=== PATIENT | female | born 1970 | race Caucasian/White ===

== ENCOUNTER 2017-12-01 19:57 | Emergency (ER) | payer MEDICAID ==
[~2017-12-01] VITALS: Ht 162.6 cm; Wt 77.3 kg
[2017-12-01 20:44] VITALS: Ht 162.6 cm; Wt 77.3 kg
[2017-12-01 21:58] LABS: BASOPHILS 0.1 % (0-2); EOSINOPHILS 0.2 % (0-7); HEMATOCRIT 45.9 % (36.0-48.0); HEMOGLOBIN 15.8 g/dL (12-16); IMMATURE GRANULOCYTES 0.2 % (0-5); LYMPHOCYTES 14.7 % (15-50); MCHC 34.4 g/dL (31.0-37.0); MCV 90.2 fL (80.0-100.0); MONOCYTES 7.8 % (2-11); PLATELET COUNT 184 10x3/uL (130-400); RBC 5.09 10x6/uL (4.00-5.40); RDW 13.1 % (11.5-14.5); WBC 10.3 10x3/uL (4.8-10.8)
[2017-12-01 22:15] LABS: ALBUMIN 3.7 g/dL (3.4-5.0); ANION GAP 14.2 mmol/L (8-16); BILIRUBIN - TOTAL 0.22 mg/dL (0.2-1.3); CALCIUM 9.1 mg/dL (8.5-10.1); CARBON DIOXIDE 25.3 mmol/L (21.0-32.0); CREATININE - SERUM 0.9 mg/dL (0.6-1.3); POTASSIUM - SERUM 3.5 mmol/L (3.5-5.1); PROTEIN - SERUM 8.5 g/dL (6.4-8.2)
[2017-12-01 22:44] LABS: APPEARANCE HAZY (CLEAR); COLOR YELLOW (YELLOW); SPECIFIC GRAVITY 1.015 (1.005-1.020)
[2017-12-01 22:45] LABS: BILIRUBIN NEGATIVE (NEGATIVE); GLUCOSE NEGATIVE (NEGATIVE); KETONE NEGATIVE (NEGATIVE); NITRITE NEGATIVE (NEGATIVE); PROTEIN NEGATIVE (NEGATIVE); UROBILINOGEN NORMAL (NORMAL)
[2017-12-01 22:46] LABS: BACTERIA MODERATE /hpf (NONE SEEN); RED CELLS - URINE 0-5 /hpf (0-5); WHITE CELLS - URINE 0-5 /hpf (0-5)
[2017-12-02] MEDS ORDERED: BENTYL 20 MG TA20 MG PO (00:50)
[2017-12-02] MEDS ORDERED: ZOFRAN4 MG PO (00:50)
[2017-12-02 01:09] VITALS: BP 121/76
== END 2017-12-02 01:10 | disposition home or self-care (01) ==
LOC: D.ER 19:57
PROVIDERS: Family Medicine
DX: R10.9 Unspecified abdominal pain (principal); R11.2 Nausea with vomiting, unspecified

== ENCOUNTER 2019-02-17 07:30 | Emergency (ER) | payer OTHER ==
[~2019-02-17] VITALS: Ht 162.6 cm; Wt 77.3 kg
[~2019-02-17 07:30] MED LIST: BENTYL 20 MG TA20 MG PO; ZOFRAN4 MG PO
[2019-02-17 07:34] VITALS: BP 166/91; Ht 162.6 cm; Wt 77.3 kg
== END 2019-02-17 08:56 | disposition home or self-care (01) ==
LOC: D.ER 07:30
DX: J06.9 Acute upper respiratory infection, unspecified (principal); R09.89 Other specified symptoms and signs involving the circulatory and respiratory systems